=== PATIENT | female | born 1985 | race Caucasian/White ===

== ENCOUNTER 2019-07-22 10:29 | Emergency (ER) | payer BC ==
[~2019-07-22] VITALS: Ht 170.2 cm; Wt 63.6 kg
[2019-07-22 10:33] VITALS: BP 123/84
[2019-07-22] MEDS ORDERED: CYCL-1 PO (12:21)
[2019-07-22] MEDS ORDERED: IBUP-1984 PO (12:21)
[2019-07-22] MEDS ORDERED: ketorolac tromethamine 15mg/ml inj. IM ONE (12:40)
[2019-07-22] MEDS ORDERED: orphenadrine citrate 60mg/2ml inj. IM ONE (12:40)
== END 2019-07-22 13:15 | disposition home or self-care (01) ==
LOC: ER 10:29
DX: M54.2 Cervicalgia (principal); M25.511 Pain in right shoulder; Z87.442 Personal history of urinary calculi; V49.88XA Car occupant (driver) (passenger) injured in other specified transport accidents, initial encounter; Y93.89 Activity, other specified; Y92.413 State road as the place of occurrence of the external cause; Y99.9 Unspecified external cause status
CPT/HCPCS: 72125; 96372; 99284; J1885; J2360